=== PATIENT | female | born 1965 | race Caucasian/White ===

== ENCOUNTER 2017-03-23 10:59 | Emergency (ER) | payer OTHER ==
[~2017-03-23] VITALS: Ht 154.9 cm; Wt 56.7 kg
--- NOTE | 2017-03-23 11:15 | NUR ---
PRESENTS SELF TOE ED DUE TO L HIP PAIN WHILE WALKING X 5 MONTHS, PT IS AAO4, APPEARS IN NO APPARENT DISTRESS, RESPIRATION EVEN AND UNLABORED, PATIENT DENIES ANY INJURY. VSS.
--- NOTE | 2017-03-23 11:23 | NUR ---
MD SEXTON AT BEDSIDE
--- NOTE | 2017-03-23 12:09 | NUR ---
SIGNED WAIVER FOR
--- NOTE | 2017-03-23 12:11 | NUR ---
PT WAS TAKEN TO XRAY DEPT
[2017-03-23 13:00] VITALS: BP 124/80
--- NOTE | 2017-03-23 13:01 | NUR ---
Patient discharged to home in stable condition. Written and verbal after care instructions given. Patient verbalizes understanding of instruction.
== END 2017-03-23 13:01 | disposition home or self-care (01) ==
LOC: ER 11:05
DX: M25.552 Pain in left hip (principal); J45.909 Unspecified asthma, uncomplicated; V89.2XXA Person injured in unspecified motor-vehicle accident, traffic, initial encounter; Y93.89 Activity, other specified; Y92.413 State road as the place of occurrence of the external cause; Y99.8 Other external cause status
CPT/HCPCS: 73503; 99284; A4606; 73510-TC; Z7610